=== PATIENT | male | born 2005 | race Caucasian/White ===

== ENCOUNTER 2025-05-06 02:47 | Emergency (ER) | payer OTHER, MEDICAID ==
[~2025-05-06] VITALS: Ht 170.2 cm; Wt 68.0 kg
[2025-05-06 03:20] VITALS: BP 133/75; PULSE 56; RESP 20; TEMP 98; O2SAT 98
--- NOTE | 2025-05-06 03:47 | Physician Documentation ---
History of Present Illness ~ Chief Complaint: Ear Pain Stated Complaint: EAR PAIN Time Seen by MD: 03:47 HPI 19-year-old male presenting to the ED with 3 days of right ear pain and fullness. He states he was using Q-tips to itch his ear before the pain started but has not used Q-tips since. His ear feels itchy, tender, and full, moreso on the right but also affecting the left. Ibuprofen, Tylenol, acetaminophen have not helped, irrigating with warm water helped. [place] [facility] [place] probably has an external ear infection. He has had cold and congestion symptoms for the last 8 hours. Denies change in hearing, pain on the outside of the ear, fever, chills, dizziness, shortness of breath. Medication Reconciliation Allergies: Coded Allergies: amoxicillin (Verified Allergy, Severe, 05/06/25) Scheduled Acetic Acid/Hydrocortisone (Hydrocortison-Acetic Acid Soln), 3 DROP EACH EAR QID Past Medical History Past Medical History: No Pertinent History Past Surgical History: noncontributory Smoking Status: Never smoker Alcohol Use: None Drug Use: none Review of Systems ROS Negative except for HPI Physical Exam Vital Signs: Temperature: 98.0, Heart Rate: 56, Respiratory Rate: 20, BP: 133/75, Pulse Oximetry: 98, Weight: 68.000 Oxygen Flow Rate: 0 Physical Exam General: Awake and alert. No acute distress. HEENT: Atraumatic, oropharynx is moist. No tenderness or erythema over the mastoids. Auricle is unremarkable. Left ear canal is mildly erythematous with mild tenderness. Right ear canal is moderately erythematous with moderate tenderness. Tympanic light reflex seen bilaterally. No drainage. Mild ear wax bilaterally. Lungs: normal work of breathing Abdomen: benign abdomen. Extremities: Warm and well-perfused Neuro: Alert and oriented, no focal deficits Psychiatric: Calm and cooperative with exam Progress Results/Orders Results/Orders Vital Signs 05/06/25 03:20 Temp 98.0 Pulse 56 Resp 20 B/P (MAP) 133/75 Pulse Ox 98 O2 Flow Rate 0 Medical Decision Making Additional information obtaine: N/A Findings na Ear Diff. Dx: Considerations: Include: Cerumen impaction, Otitis externa, Otitis media, Tympanic Membrane Injury Eye Diff. Dx: Considerations: Unlikely: Globe rupture Nose Diff. Dx: Considerations: Unlikely: Fracture-septum Tooth Diff. Dx: Considerations: Unlikely: Pulpitis Throat Diff Dx: Considerations: Unlikely: Herpes simplex Additional Comment The patient presents with bilateral ear pain. His history and exam are consist ent with otitis externa. This could be from Q-tip use. No evidence of otitis media or mastoiditis. He will be treated with ear drops. Pain management will be with ibuprofen and Tylenol. Home instructions and return precautions given Departure Disposition: HOME / SELF CARE / HOMELESS Impression: Primary Impression: Otitis externa of both ears Condition: Stable Referrals: NO PRIMARY CARE PROVIDER (PCP) Prescriptions Acetic Acid/Hydrocortisone (Hydrocortison-Acetic Acid Soln) 1 %-2 % Drops 3 DROP EACH EAR QID for 7 Days, #10 ML 0 Refills Prov: MARYCHUY MENSAH MD 05/06/25 Education Educated: Patient Educated regarding: diagnosis, treatment, need for follow up Signature Scribe Signature: [email or web address] Attestation: MARYCHUY Oropeza MD May 06, 2025 03:47
[2025-05-06] MEDS ORDERED: ACET10DR3 EACH EAR (04:26)
== END 2025-05-06 05:01 | disposition home or self-care (01) ==
LOC: ER 02:48
DX: H60.93 Unspecified otitis externa, bilateral (principal); Z88.1 Allergy status to other antibiotic agents; Z79.899 Other long term (current) drug therapy
CPT/HCPCS: 99283